=== PATIENT | female | born 1945 | race Caucasian/White ===

== ENCOUNTER 2021-10-01 15:00 | Outpatient (RCR) | payer MEDICARE, OTHER, SELFPAY | END 2021-10-01 16:00 | disposition home or self-care (01) | LOC: HO.PT 15:00 | PROVIDERS: PCP Internal Medicine; Visit Provider Colon & Rectal Surgery | DX: N81.89 Other female genital prolapse (principal); K59.04 Chronic idiopathic constipation | CPT/HCPCS: 97112; 97161 ==